=== PATIENT | female | born 1970 | race Caucasian/White ===

== ENCOUNTER 2018-05-06 17:03 | Emergency (ER) | payer BC, MEDICAID ==
[2018-05-06 17:04] VITALS: BMI 25.6
[2018-05-06 17:07] VITALS: PULSE 83; TEMP 98.2; O2SAT 96
[2018-05-06 17:08] VITALS: BP 112/72
--- NOTE | 2018-05-06 18:18 | C.PDOC ---
History Of Present Illness pain to right pinky s/p caught in car door yesterday Time Seen by Provider: 05/06/18 17:22 Chief Complaint (Nursing): Finger,Hand,&Wrist History Per: Patient History/Exam Limitations: no limitations Onset/Duration Of Symptoms: Days (2) Current Symptoms Are (Timing): Still Present Quality: "Pain" Severity: Moderate Past Medical History Reviewed: Historical Data, Nursing Documentation, Vital Signs Vital Signs: Last Vital Signs Temp 98.2 F 05/06/18 17:06 Pulse 83 05/06/18 17:06 Resp 18 05/06/18 19:06 BP 112/72 05/06/18 17:06 Pulse Ox 96 05/06/18 18:41 - Medical History PMH: No Chronic Diseases Family History: States: Unknown Family Hx - Social History Hx Tobacco Use: No Hx Alcohol Use: No Hx Substance Use: No - Immunization History Hx Influenza Vaccination: Yes Hx Pneumococcal Vaccination: No Review Of Systems Constitutional: Negative for: Fever, Chills Skin: Negative for: Rash, Bruising Neurological: Negative for: Weakness, Numbness Physical Exam - Physical Exam Appears: Non-toxic, No Acute Distress Skin: Warm, Dry Extremity: Other (from right wrist and fingers except pinky; dec rom of 5th finger with pain and swelling to distal phalanx at dip, skin intact, no broken nail. ) Pulses: Right Radial: Normal ED Course And Treatment O2 Sat by Pulse Oximetry: 96 Medical Decision Making Medical Decision Making: pinky pain s/po slammed in door; xray 1838 questionable irregularity to finger at dip, splint placed, f/u hand Disposition Counseled Patient/Family Regarding: Studies Performed, Diagnosis, Need For Followup, Rx Given - Disposition Referrals: Blas Mills MD [Staff Provider] - Disposition: HOME/ ROUTINE Disposition Time: 18:39 Condition: GOOD Additional Instructions: Please take Tylenol or ibuprofen for pain if needed. Cold compresses to finger several times a day, over light cloth. Wear splint for comfort and stability. Follow up with Dr Mills (hand specialist) mnext week- call for an appointment. Prescriptions: Acetaminophen [Tylenol 325mg tab] 650 mg PO Q6 #30 tab Instructions: Finger Fracture Forms: [employer] (Slovak) Print Language: DIVEHI - Clinical Impression Clinical Impression: Injury of right little finger
[2018-05-06 19:06] VITALS: RESP 18
--- NOTE | 2018-05-07 10:58 | RAD ---
PROCEDURE: Right small finger radiographs. HISTORY: slammed in car door COMPARISON: None. TECHNIQUE: AP radiograph of the right hand, as well as spot oblique and lateral images of small finger were obtained. FINDINGS: RIGHT SMALL FINGER: No evidence of acute displaced fracture nor dislocation. JOINTS: Moderate degenerative osteoarthritis DIP joint 5th finger. There may be some mild soft tissue swelling surrounding the distal aspect of the neither including the soft tissues at the level of the distal aspect middle phalanx. SOFT TISSUES: Note is made of a small elliptical shaped radiopaque density within the ulnar soft tissues at the level of the DIP joint 4th finger which could represent some old posttraumatic mineralization or small opaque foreign body OTHER FINDINGS: None. IMPRESSION: No evidence of acute displaced fracture nor dislocation. 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 Mild soft tissue swelling around the distal aspect right 5th finger
== END 2018-05-06 19:06 | disposition home or self-care (01) ==
LOC: C.ER 17:03
DX: S69.91XA Unspecified injury of right wrist, hand and finger(s), initial encounter (principal); W23.0XXA Caught, crushed, jammed, or pinched between moving objects, initial encounter